=== PATIENT | male | born 1950 | race Caucasian/White ===

== ENCOUNTER 2019-08-03 08:33 | Inpatient (IN) | payer MEDICARE, OTHER ==
[~2019-08-03] VITALS: Ht 188 cm; Wt 98.0 kg
--- NOTE | 2019-08-03 08:40 | NUR ---
pt bibra from home to ed bed 08. per ems report, unwitnessed fall in the bathroom this morning. 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 facial abrasions noted. 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
--- NOTE | 2019-08-03 08:50 | NUR ---
iv line started blood drawn and sent to lab.
--- NOTE | 2019-08-03 08:58 | NUR ---
dr magallanes at bedside for eval.
[2019-08-03] MEDS ORDERED: CEFTRIAXONE 1GM BAG (ER ONLY) 50 ML IV ONE ×2 (09:00→09:04)
[2019-08-03] MEDS ORDERED: AZITHROMYCIN 500 MG in IV D5W 250 ML IV ONE (09:00)
[2019-08-03] MEDS ORDERED: IV NS 0.9% 1,000 ML BAG IV ONE (09:00)
[2019-08-03] MEDS ORDERED: ACETAMINOPHEN ES 500 MG TABLET PO ONE (09:00)
[2019-08-03] MEDS ORDERED: ACETAMINOPHEN ES 500 MG TABLET ONE (09:04)
[2019-08-03 09:19] LABS: BASOPHILS % (AUTO) 0.2 % (0.0-2.0); EOSINOPHILS % (AUTO) 2.1 % (0.0-6.0); HEMATOCRIT 40 % (39-51); HEMOGLOBIN 13.5 g/dL (13.5-17.5); LYMPHOCYTES # (AUTO) 0.8 /CMM (0.8-4.8); LYMPHOCYTES % (AUTO) 7.4 % (20.0-44.0); MEAN CORPUSCULAR HGB CONC 34 g/dl (31.0-36.0); MEAN CORPUSCULAR VOLUME 92 fL (80-96); MONOCYTES # (AUTO) 0.7 /CMM (0.1-1.30); NEUTROPHILS # (AUTO) 8.8 /CMM (1.8-8.9); NEUTROPHILS % (AUTO) 83.3 % (43.0-81.0); PLATELET COUNT (AUTO) 193 /CMM (150-450); RED BLOOD CELL COUNT(AUTO) 4.35 MIL/uL (4.5-6.0); WHITE BLOOD COUNT (AUTO) 10.6 K/uL (4.3-11.0)
[2019-08-03 09:27] LABS: APPEARANCE,URINE Clear (CLEAR); BILIRUBIN,URINE Negative (NEGATIVE); BLOOD, URINE Negative Ery/uL (NEGATIVE); COLOR,URINE Yellow (YELLOW); KETONES,URINE Negative (NEGATIVE); LEUKOCYTE ESTERASE ,URINE Negative (NEGATIVE); NITRITE, URINE Negative (NEGATIVE); PROTEIN,URINE Trace mg/dl (NEGATIVE); UGLUCOSE Negative (NEGATIVE); UROBILINOGEN,URINE 0.2 EU/dL (0.2)
[2019-08-03 09:28] LABS: CALCIUM, SERUM 8.7 mg/dL (8.5-10.1); CARBON DIOXIDE 26 mmol/L (21-32); CHLORIDE 101 mmol/L (98-107); CREATININE 2.4 mg/dL (0.6-1.3); GLUCOSE 134 mg/dL (74-106); POTASSIUM 4.9 mmol/L (3.5-5.1); SODIUM SERUM 136 mmol/L (136-145); UREA NITROGEN, BLOOD 37 mg/dL (7-18)
[2019-08-03 09:28] LABS: BACTERIA,URINE None seen /HPF (None Seen); RBC,URINE 0-2 /HPF (0-2); SQUAMOUS EPITHELIAL CELL,UR None Seen /HPF (None Seen); WBC,URINE 0-2 /HPF (0-3)
[2019-08-03] MEDS ORDERED: QUET25TA PO (09:33)
[2019-08-03] MEDS ORDERED: ALPR0.5T8 PO (09:33)
[2019-08-03] MEDS ORDERED: WARF-58 PO (09:33)
[2019-08-03] MEDS ORDERED: LISI-603 PO (09:33)
[2019-08-03] MEDS ORDERED: ZOLP10TA2 PO (09:33)
[2019-08-03] MEDS ORDERED: GABA-536 PO (09:33)
[2019-08-03 09:34] LABS: ALANINE AMINOTRANSFERASE 35 U/L (12-78); ALBUMIN 3.9 g/dL (3.4-5.0); ALKALINE PHOSPHATASE 85 U/L (46-116); ASPARTATE AMINOTRANSFERASE 82 U/L (15-37); BILIRUBIN,DIRECT 0.1 mg/dL (0.0-0.2); BILIRUBIN,TOTAL 0.6 mg/dL (0.2-1.0); TOTAL PROTEIN, SERUM 7.2 g/dL (6.4-8.2)
--- NOTE | 2019-08-03 09:37 | NUR ---
pt to radiology for head ct scan via [facility].
[2019-08-03] MEDS ORDERED: HYDR-3980 PO (09:39)
--- NOTE | 2019-08-03 09:40 | NUR ---
DR. JAME COLON (PCP) [phone]. DR. SHAKIRA GALINDO (PAIN MANAGEMENT) [phone].
--- NOTE | 2019-08-03 10:09 | NUR ---
ROMM GIVEN 107
--- NOTE | 2019-08-03 10:18 | NUR ---
CALLED [facility] ITS ANDONIAN
--- NOTE | 2019-08-03 10:22 | NUR ---
report given to yeison grayson for partha.
[2019-08-03 10:53] LABS: ABG BASE EXCESS -6.8 mmol/L; ABG OXYGEN SATURATION 89.5 % (92.0-98.5); ABG PH 7.266 (7.350-7.450); ABG PO2 60.7 mmHg (75.0-100.0); AaDO2 35.1 mmHg; COHb 1.4 % (0.5-1.5); MetHb 0.3 % (0.0-1.5); SITE, ABG Right Radial; VENT MODE, BG ROOM AIR
[2019-08-03] MEDS ORDERED: ACETAMINOPHEN 325 MG TABLET PO PRN (11:00)
[2019-08-03] MEDS ORDERED: ZOLPIDEM TARTRATE 10 MG TABLET PO PRN (11:00)
[2019-08-03] MEDS ORDERED: ALPRAZOLAM 0.5 MG TABLET PO PRN (11:00)
[2019-08-03] MEDS ORDERED: MAG HYDROX/AL HYDROX/SIMETH 30 ML UDC PO PRN (11:00)
[2019-08-03] MEDS ORDERED: ONDANSETRON HCL/PF 4 MG/2 ML VIAL IVP PRN (11:00)
[2019-08-03] MEDS ORDERED: Z GUARD REMEDY 2 OZ OINT TP PRN (11:00)
[2019-08-03] MEDS ORDERED: MAGNESIUM HYDROXIDE 30 ML UDC PO PRN (11:00)
[2019-08-03 12:00] VITALS: BP 104/67
--- NOTE | 2019-08-03 12:00 | NUR ---
RN TELE1 PATIENT A/O X 2 . PATIENT SEEMS STILL CONFUSED ABOUT SITUATION, EXPLAINED TO THE PATIENT REASON FOR BEIGN AT THE HOSPITAL, HIS CONDITION, PATIENT REFUSES TO BELIEVE WE ARE NOT AT THE HOSPITAL. KEEP ASKING FOR . NOT FOLLOWING COMMANDS. PATIENT ASKING FOR REPEATED EXPLAIN TO PATIENT IS UNABLE TO BE AT THE HOSPITAL AT THIS TIME. PATIENT HAS A RIGHT EYE ORBITAL WOUND. R IV AC. 18 G. PATENT AND INTACT. ON EXTERNAL MONITOR PATIENT READING 120S ON MONITOR. CHECKED RADIAL PULSE CONFIRM HEART RATE. PATIENT IS ST. BED LOCKED AND LOWEST POSITION CALL LIGHT WITH IN REACH ALL SAFETY MEASURE IMPLEMENTED PER HOSPITAL POLICY
[2019-08-03 12:14] LABS: C-REACTIVE PROTEIN 7.7 mg/dL (0.0-0.9)
--- NOTE | 2019-08-03 14:00 | NUR ---
ADJUNCT INSTRUCTOR OF WOMEN'S STUDIES PATIENT REFUSED MEDICATION, PATIENT STATED HE DID NOT TRUST MEDICATION ( PACKAGED) THAT WAS PROVIDED TO PATIENT, PATIENT TRYING TO GET OUT OF BED CONSTANTLY. DOES NOT WANT TO LISTEN.
[2019-08-03] MEDS: HYDROXYCHLOROQUINE 200 MG TABLET PO SCH ×2 (14:02→21:00)
[2019-08-03] MEDS: GABAPENTIN 400 MG CAPSULE PO SCH ×2 (14:02→17:00)
--- NOTE | 2019-08-03 16:00 | NUR ---
TESTER REGULATOR NOTES PATIENT REFUSED TO TAKE VITALS
--- NOTE | 2019-08-03 17:10 | NUR ---
QUARTZ MOUNTER NTOES PATIENT PULL OUT R IV, PATIENT NON COMPLIANT , PATIENT TOOK OFF EXTERNAL MONITOR. EXPLAINED TO PATIENT IMPORTANCE OF KEEP MONITOR AND IV PLACEMENT. PATIENT SAID HE DID NOT PULL IT OUT IT JUST APPEAR IN HIS HAND
--- NOTE | 2019-08-03 18:34 | NUR ---
TYPESETTERS PRINTER IV INSERTED RIGHT IV. NO CHANGEIN CONDITION AT THIS TIME, PATIENT STABLE, STILL CONFUSED, BED LOCKED LOWEST POSITION CALL LIGHT WITH IN REACH ALL SAFETY MEASURE IMPLEMENTED PER HOSPITAL POLICY
--- NOTE | 2019-08-03 19:10 | NUR ---
RN OPENING NOTES RECIEVED PT AWAKE ON BED A/OX2 CONFUSED AND FORGETFUL ON RA SPO2>95% KEEP SAYING THAT HE IS VERY UNCOMFORTABLE WITH HIS MENDEZ, MENDEZ FELDER WAS CHANGE SO IT WILL NOT BE PULLED, WITH IV ON R FOREARM FLUSHED AND PATENT, ON TELE MONITOR WITH READING SR, 100 KEEP ON INSTRUCTING THE PT TO STAY ON BED OR SIT ON CHAIR BUT PT KEEP STANDING AND WALKING. WILL CONT TO MONITOR THE PATIENT
[2019-08-03] MEDS: HYDROCODONE/APAP 10/325MG 1 EA TABLET PO PRN (19:34)
[2019-08-03 20:00] VITALS: BP 146/81
--- NOTE | 2019-08-03 21:21 | NUR ---
PAD TUFTER NOTES PT IS SO AGITATED AND STANDING OUTSIDE HIS ROOM KEEP TELLING AND INSTRUCING HIM YO GO INSIDE BECAUSE HE IS ON DROPLET ISOLATION R/O COCID PT IS UNCOOPERATIVE AND DONT LISTEN, HE EVEN REMOVE THE TELE MONITOR AND SAYS HE DONT WANT IT CHARGE NURSE MADE AWARE
--- NOTE | 2019-08-03 21:47 | NUR ---
SHOW DOG TRAINER NURSE PT AGITATED AND ANXIOUS HE PULLED HIS MENDEZ CATHETER WITH MODERATE AMT OF BLEEDING NOTED, INSTRUCTED PT TO GO INSIDE HIS ROOM BUT UNCOOPERATIVE PT REMOVED THE TELE MONITOR CHARGE NURSE MADE AWARE, WILL CONT TO MONITOR AND WATCH THE PT FOR POSSIBLE HOSTILITY KEEP INSTRUCTING THE PT TO GO INSIDE HIS ROOM PT REFUSED TO TAKE HIS MEDICATION
[2019-08-03] MEDS ORDERED: QUETIAPINE FUMARATE 25 MG TABLET PO SCH (22:00)
[2019-08-04] VITALS: BP 138/89
--- NOTE | 2019-08-04 01:42 | NUR ---
IS SUPPORT ANALYST NOTES PT STILL AWAKE AND WALKING INSIDE THE ROOM OFFER SOME SLEEPING PILLS BUT REFUSED SITTER AT BEDSIDE WILL CONT TO MONITOR
[2019-08-04 04:00] VITALS: BP_SYST 150; BP_SYST 154; BP_DIAS 77; BP_DIAS 98
--- NOTE | 2019-08-04 05:48 | NUR ---
SAVINGS TELLER NOTES PT REFUSED TO DRAWN A BLOOD FROM HIM EXPLAINED BENEFITS AND CONSEQUENCE 3X BUT STILL REFUSING CHARGE NURSE MADE AWARE
--- NOTE | 2019-08-04 07:00 | NUR ---
LABOR CONTRACTOR CLOSING NOTES PT STILL AWAKE SITTER AT BED SIDE WITH SPO2 94% @ RA, PT STILL AGITATED AND CONFUSED HE REFUSED ALL THE INTERVENTIONS CHARGE NURSE AWARE, DROPLET ISOLATION MAINTAINED R/O COVID 19 PENDING RESULT, ALL NEEDS ATTENDED TELE MONITOR REFUSED AND REMOVED CODE STATUS TO FOLLOW UP WITH TODAY WILL ENDORSE TO AM SHIFT NURSE
[2019-08-04 08:00] VITALS: BP 141/97
[2019-08-04] MEDS ORDERED: LISINOPRIL (20MG) 20 MG TABLET PO SCH (09:00)
[2019-08-04] MEDS: GABAPENTIN 400 MG CAPSULE PO SCH ×3 (09:26→17:58)
[2019-08-04] MEDS: IV NS 0.9% 1,000 ML IV PRN (09:26)
[2019-08-04] MEDS: HYDROXYCHLOROQUINE 200 MG TABLET PO SCH ×2 (09:26→17:58)
[2019-08-04] MEDS: CEFTRIAXONE 1 G in IV D5W 50 ML IV SCH (09:26)
[2019-08-04 09:49] LABS: ABG BASE EXCESS -1.9 mmol/L; ABG OXYGEN SATURATION 95.1 % (92.0-98.5); ABG PCO2 31.5 mmHg (35.0-45.0); ABG PH 7.447 (7.350-7.450); ABG PO2 73.6 mmHg (75.0-100.0); AaDO2 38.4 mmHg; COHb 1.4 % (0.5-1.5); MetHb 0.1 % (0.0-1.5); O2Hb 93.7 % (94.0-97.0); SITE, ABG Left Radial; VENT MODE, BG room air
[2019-08-04] MEDS: AZITHROMYCIN 500 MG in IV D5W 250 ML IV SCH (11:23)
--- NOTE | 2019-08-04 12:00 | NUR ---
PT REFUSED VS AT 1200 Addendum: 08/04/19 at 1622 by BISI CLAYTON RN Amended: Links added.
[2019-08-04] MEDS: HYDROCODONE/APAP 10/325MG 1 EA TABLET PO PRN (14:29)
[2019-08-04 16:00] VITALS: BP 136/81
--- NOTE | 2019-08-04 18:17 | NUR ---
END OF SHIFT NOTE: REPORT GIVEN FOR TRANSFER TO ROOM 201-1. PT WAS CONFUSED AND AGITATED AT THE BEGINNING OF THE SHIFT, AT THIS TIME PT IS OX4 AND COOPERATIVE. CONTINUES TO BE FORGETFUL AT TIMES. PT IS STEADY ON FEET, INDEPENDENT IN ROOM. 1ST COVID TEST CAME BACK NEG, REPEAT COVID TEST SENT PER MD ORDERS. URINE SENT TO LAB PER MD ORDERS. PT CHECKED ON HOURLY AND PRN BY NURSING STAFF.
[2019-08-04 19:30] VITALS: BP 153/81
--- NOTE | 2019-08-04 19:33 | NUR ---
TELE/RN CLOSING NOTES RECEIVED REPORT FROM BISI PATIENT WAS CONFUSED AND AGITATED AT THE BEGINNING OF THE SHIFT, AT THIS TIME PATIENT IS A/OX4 AND COOPERATIVE. CONTINUES TO BE FORGETFUL AT TIMES. PATIENT IS STEADY ON FEET, INDEPENDENT IN ROOM. 1ST COVID TEST CAME BACK NEG, REPEAT COVID TEST SENT PER MD ORDERS. NO APPARENT RESPIRATORY DISTRESS NOTED. DENIES PAIN AT THIS TIME. WILL ENDORSED TO AXMINSTER WEAVER FOR RAJ.
--- NOTE | 2019-08-04 19:46 | NUR ---
BLINDMAKER NOTES PATIENT AWAKE, WALKING AROUND ROOM. ALERT AND ORIENTED 4. BREATHING EVEN AND UNLABORED ON ROOM AIR. SHOWS NO SIGNS OF ACUTE RESPIRATORY DISTRESS, NO ACUTE PAIN. TELE MONITOR ON SR. IV ON R FOREARM 20G RUNNING NS AT 70ML/HR. SHOWS NO SIGNS OF ACUTE RESPIRATORY DISTRESS, NO ACUTE PAIN. SITTER AT BEDSIDE. SAFETY PRECAUTION. BED IN LOWEST POSITION, LOCKED, AND CALL LIGHT KEPT WITHIN REACH.
[2019-08-05] MEDS: IV NS 0.9% 1,000 ML IV PRN ×2 (00:47→16:55)
[2019-08-05 03:19] LABS: CREATININE, URINE 172.2 MG/DL (30.0-125.0); URINE TOTAL PROTEIN 54.8 mg/dL (0-11.9)
[2019-08-05 03:37] LABS: APPEARANCE,URINE CLEAR (CLEAR); BILIRUBIN,URINE NEGATIVE (NEGATIVE); BLOOD, URINE TRACE-INTA Ery/uL (NEGATIVE); COLOR,URINE YELLOW (YELLOW); KETONES,URINE 15 (NEGATIVE); LEUKOCYTE ESTERASE ,URINE NEGATIVE (NEGATIVE); NITRITE, URINE NEGATIVE (NEGATIVE); PROTEIN,URINE TRACE mg/dl (NEGATIVE); UGLUCOSE NEGATIVE (NEGATIVE); UROBILINOGEN,URINE 0.2 EU/dL (0.2)
[2019-08-05 04:03] LABS: BACTERIA,URINE None seen /HPF (None Seen); SQUAMOUS EPITHELIAL CELL,UR Few /HPF (None Seen)
[2019-08-05 05:06] LABS: EOSINOPHIL,URINE None Seen
--- NOTE | 2019-08-05 06:33 | NUR ---
TILE TRIMMER NOTES PATIENT IN BED, ASLEEP, ALERT AND ORIENTED 4. BREATHING EVEN AND UNLABORED ON ROOM AIR. SHOWS NO SIGNS OF ACUTE RESPIRATORY DISTRESS, NO ACUTE PAIN. TELE MONITOR ON SR. IV ON R FOREARM 20G RUNNING NS AT 70ML/HR. SHOWS NO SIGNS OF ACUTE RESPIRATORY DISTRESS, NO ACUTE PAIN. SITTER AT BEDSIDE. ALL DUE MEDICATIONS GIVEN. SAFETY PRECAUTION. BED IN LOWEST POSITION, LOCKED, AND CALL LIGHT KEPT WITHIN REACH. WILL ENDORSE TO ONCOMING NURSE.
[2019-08-05 07:05] LABS: BASOPHILS # (AUTO) 0.1 /CMM (0.0-0.2); BASOPHILS % (AUTO) 0.9 % (0.0-2.0); EOSINOPHILS % (AUTO) 2.8 % (0.0-6.0); HEMATOCRIT 37 % (39-51); HEMOGLOBIN 12.5 g/dL (13.5-17.5); LYMPHOCYTES # (AUTO) 1.8 /CMM (0.8-4.8); LYMPHOCYTES % (AUTO) 27.3 % (20.0-44.0); MEAN CORPUSCULAR HGB CONC 34 g/dl (31.0-36.0); MEAN CORPUSCULAR VOLUME 91 fL (80-96); MONOCYTES # (AUTO) 0.6 /CMM (0.1-1.30); MONOCYTES % (AUTO) 9.6 % (2.0-12.0); NEUTROPHILS # (AUTO) 3.9 /CMM (1.8-8.9); NEUTROPHILS % (AUTO) 59.4 % (43.0-81.0); PLATELET COUNT (AUTO) 207 /CMM (150-450); RED BLOOD CELL COUNT(AUTO) 4.01 MIL/uL (4.5-6.0); WHITE BLOOD COUNT (AUTO) 6.6 K/uL (4.3-11.0)
[2019-08-05 07:22] LABS: ALANINE AMINOTRANSFERASE 29 U/L (12-78); ALBUMIN 3.7 g/dL (3.4-5.0); ALKALINE PHOSPHATASE 61 U/L (46-116); ASPARTATE AMINOTRANSFERASE 48 U/L (15-37); BILIRUBIN,TOTAL 0.7 mg/dL (0.2-1.0); CALCIUM, SERUM 9.2 mg/dL (8.5-10.1); CARBON DIOXIDE 26 mmol/L (21-32); CHLORIDE 105 mmol/L (98-107); CREATININE 1.1 mg/dL (0.6-1.3); GLUCOSE 97 mg/dL (74-106); MAGNESIUM 2.1 mg/dL (1.8-2.4); PHOSPHORUS 2.3 mg/dL (2.5-4.9); POTASSIUM 4.3 mmol/L (3.5-5.1); SODIUM SERUM 140 mmol/L (136-145); TOTAL PROTEIN, SERUM 7.3 g/dL (6.4-8.2); UREA NITROGEN, BLOOD 22 mg/dL (7-18)
--- NOTE | 2019-08-05 07:30 | NUR ---
MERCHANDISE FLOW ASSOCIATE NOTES PT IN BED, AWAKE, ALERT AND ORIENTED, NO COMPLAINT OF PAIN OR ANY DISCOMFORT, RESPIRATIONS NORMAL AND NON LABORED, TOLERATES ROOM AIR, NOTED WITH GOOD APPETITE, NEEDS ATTENDED.
[2019-08-05] MEDS: GABAPENTIN 400 MG CAPSULE PO SCH ×3 (08:42→16:52)
[2019-08-05] MEDS: HYDROXYCHLOROQUINE 200 MG TABLET PO SCH ×2 (08:42→16:52)
[2019-08-05] MEDS: CEFTRIAXONE 1 G in IV D5W 50 ML IV SCH (08:43)
[2019-08-05] MEDS: AZITHROMYCIN 500 MG in IV D5W 250 ML IV SCH (10:15)
[2019-08-05] MEDS ORDERED: K PHOS NEUTRAL 250 MG TABLET PO ONE (16:00)
[2019-08-05] MEDS: HYDROCODONE/APAP 10/325MG 1 EA TABLET PO PRN (18:59)
--- NOTE | 2019-08-05 19:00 | NUR ---
HAND TURNER NOTES PT IN BED, AWAKE, ALERT AND ORIENTED, PAIN MEDS GIVEN FOR BACK PAIN, TOLERATES CURRENT DIET, AMBULATES WITH STEADY GAIT TO THE BATHROOM, ALL NEEDS ATTENDED.
[2019-08-05 20:00] VITALS: BP 133/83
--- NOTE | 2019-08-05 20:00 | NUR ---
RN NOTES PATIENT ALERT AND ORIENTED X3, WITH EPISODE OF CONFUSION, RISK FOR FALL, R/O COVID, WITH SITTER FOR SAFETY
[2019-08-05 20:57] VITALS: BP 133/83
[2019-08-06] VITALS: BP 142/86
[2019-08-06] MEDS: IV NS 0.9% 1,000 ML IV PRN (03:37)
[2019-08-06 04:00] VITALS: BP 139/80
[2019-08-06 04:29] VITALS: BP 139/80
--- NOTE | 2019-08-06 06:45 | NUR ---
RN NOTES PM SHIFT ALERT AND ORIENTED X3, WITH SITTER FOR SAFETY, RISK FOR FALL, CARDIO CONSULT DONE, NO COUMADIN PER CARDIO, WILL BENEFIT FROM ELIQUIS 2.5 BID WHEN INR < 2, COVID -NEGATIVE, MONITOR SAFETY, CONTINUE HYDRATION.
[2019-08-06 07:13] LABS: BASOPHILS % (AUTO) 0.6 % (0.0-2.0); HEMATOCRIT 35 % (39-51); HEMOGLOBIN 11.9 g/dL (13.5-17.5); LYMPHOCYTES # (AUTO) 1.3 /CMM (0.8-4.8); LYMPHOCYTES % (AUTO) 25.6 % (20.0-44.0); MEAN CORPUSCULAR HGB CONC 35 g/dl (31.0-36.0); MEAN CORPUSCULAR VOLUME 90 fL (80-96); MONOCYTES # (AUTO) 0.5 /CMM (0.1-1.30); MONOCYTES % (AUTO) 10.2 % (2.0-12.0); NEUTROPHILS % (AUTO) 60.6 % (43.0-81.0); PLATELET COUNT (AUTO) 205 /CMM (150-450); RED BLOOD CELL COUNT(AUTO) 3.81 MIL/uL (4.5-6.0); WHITE BLOOD COUNT (AUTO) 4.9 K/uL (4.3-11.0)
[2019-08-06 07:23] LABS: CALCIUM, SERUM 8.9 mg/dL (8.5-10.1); CREATININE 0.9 mg/dL (0.6-1.3); PHOSPHORUS 2.4 mg/dL (2.5-4.9); POTASSIUM 3.8 mmol/L (3.5-5.1)
[2019-08-06] MEDS: CEFTRIAXONE 1 G in IV D5W 50 ML IV SCH (08:38)
[2019-08-06] MEDS: GABAPENTIN 400 MG CAPSULE PO SCH ×2 (08:38→12:17)
[2019-08-06] MEDS: HYDROXYCHLOROQUINE 200 MG TABLET PO SCH (08:38)
[2019-08-06] MEDS: HYDROCODONE/APAP 10/325MG 1 EA TABLET PO PRN (08:39)
[2019-08-06] MEDS ORDERED: APIXABAN 5 MG TABLET PO SCH (09:00)
[2019-08-06] MEDS ORDERED: APIX5TAB PO (09:14)
[2019-08-06] MEDS ORDERED: AZITHROMYCIN 250 MG TABLET PO SCH (10:00)
[2019-08-06] MEDS ORDERED: K PHOS NEUTRAL 250 MG TABLET PO ONE (15:30)
--- NOTE | 2019-08-06 16:00 | NUR ---
PATIENT CLEARED FOR D/C TO HOME BY MD . PATIENT AWAKE ALERT AND ORIENTED X4. ALL NEEDS ATTENDED. BREATHING UNLABORED AND EVEN ON ROOM AIR WITH SATURATION ABOVE 95%. VS ARE STABLE AND WITHIN BASELINE.DISCHARGE INSTRUCTIONS PROVIDED TO PATIENT AND PATIENT VERBALIZED UNDERSTANDING. PATIENT EDUCATED ON NEW PRESCRIBED MEDICATION , S/E DISCUSSED.PATIENT VERBALIZED UNDERSTANDING. PRESCRIPTION SENT TO PREFERRED PHARMACY.PATIENT REFUSED TO TAKE D/C PICTURE. IV LINE REMOVED , ID WRIST BAND REMOVED. PATIENT SIGHED D/C INSTRUCTIONS AND VALUABLE FORM AND ALL BELONGINGS WITH THE PATIENT. PATIENT SAFELY TRANSFERRED TO [facility] AND PICKED UP BY SPOUSE
== END 2019-08-06 18:29 | disposition home health service (06) | DRG 871 ==
LOC: ER 08:35 → TELE-TD 10:36 → TELE1 08-04 17:28 → MEDSG2 08-04 18:45 → TELE2 08-05 06:08
PROVIDERS: ADMIT Family Medicine; ATTEND Family Medicine
DX: A41.9 Sepsis, unspecified organism (principal); N17.0 Acute kidney failure with tubular necrosis; G93.41 Metabolic encephalopathy; J15.9 Unspecified bacterial pneumonia; J12.9 Viral pneumonia, unspecified; J98.11 Atelectasis; E87.2 Acidosis; M62.82 Rhabdomyolysis; I25.2 Old myocardial infarction; Z86.73 Personal history of transient ischemic attack (TIA), and cerebral infarction without residual deficits; I25.10 Atherosclerotic heart disease of native coronary artery without angina pectoris; M51.9 Unspecified thoracic, thoracolumbar and lumbosacral intervertebral disc disorder; Z87.891 Personal history of nicotine dependence; Z86.718 Personal history of other venous thrombosis and embolism; Z79.01 Long term (current) use of anticoagulants; F32.9 Major depressive disorder, single episode, unspecified; R09.02 Hypoxemia; N18.9 Chronic kidney disease, unspecified; I45.81 Long QT syndrome; G89.4 Chronic pain syndrome; F41.9 Anxiety disorder, unspecified
CPT/HCPCS: 36415; 36600; 70450-TC; 71045-TC; 80048-TC; 80053-TC; 80076-TC; 80305; 81000-TC; 82550-TC; 82570-TC; 82728-TC; 82803-TC; 82962-TC; 83605-TC; 83615-TC; 83735-TC; 84100-TC; 84155-TC; 84300-TC; 84484-TC; 85025-TC; 85378-TC; 85610-TC; 85730-TC; 86140-TC; 87040-TC; 87081-TC; 87086-TC; 93307-TC; G0378; J0456; J0696; J7030; J7060